=== PATIENT | female | born 1975 ===

== ENCOUNTER 2017-09-21 13:08 | Emergency (ER) | payer OTHER ==
[2017-09-21 13:30] VITALS: RESP 18
--- NOTE | 2017-09-21 13:39 | ED PDOC ---
HPI: Headache Time Seen by Provider: 09/21/17 13:40 Chief Complaint (Nursing): Headache History Per: Patient History/Exam Limitations: no limitations Onset/Duration Of Symptoms: Days Current Symptoms Are (Timing): Still Present Severity: Moderate Additional Complaint(s): 42-year-old female, presents to the emergency department with complaints of a headache. Patient states that two nights ago, she noted a gradually worsening posterior headache before she went to sleep, associated with mild nausea. The next day, her headache was much worse and associated with blurred vision in one eye. Patient states she was seen at [facility] and had a CTA for evaluation and found to have an abnormality in carotid. Patient had subsequent carotid doppler done with no abnormality found. She was discharged and not given any medications. Patient woke up today, with worsening right sided headache and face pain, associated with blurred vision in right eye. She denies any vomiting, numbness/weakness, slurred speech, neck pain, dizziness, or any other associated symptoms. No other complaints at this time. Past Medical History Reviewed: Historical Data, Nursing Documentation, Vital Signs Vital Signs: Last Vital Signs Temp 98.4 F 09/21/17 13:26 Pulse 59 L 09/21/17 13:26 Resp 18 09/21/17 13:26 BP 118/73 09/21/17 13:26 Pulse Ox 100 09/21/17 13:26 - Family History Family History: States: No Known Family Hx - Allergies Allergies/Adverse Reactions: Allergies Allergy/AdvReac Type Severity Reaction Status Date / Time No Known Allergies Allergy Verified 09/21/17 13:26 Review of Systems Constitutional: Negative for: Fever, Chills Eyes: Positive for: Vision Change Cardiovascular: Negative for: Chest Pain, Palpitations Respiratory: Negative for: Shortness of Breath Gastrointestinal: Negative for: Nausea, Vomiting Neurological: Positive for: Headache. Negative for: Weakness, Numbness, Dizziness Physical Exam - Reviewed Nursing Documentation Reviewed: Yes Vital Signs Reviewed: Yes - Physical Exam Appears: Positive for: Non-toxic, No Acute Distress Head Exam: Positive for: ATRAUMATIC, NORMOCEPHALIC Skin: Positive for: Normal Color, Warm, Dry. Negative for: Rash Eye Exam: Positive for: Normal appearance, EOMI, PERRL Neck: Positive for: Painless ROM Cardiovascular/Chest: Positive for: Regular Rate, Rhythm. Negative for: Murmur Respiratory: Positive for: Normal Breath Sounds. Negative for: Accessory Muscle Use Extremity: Positive for: Normal ROM. 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 Negative for: Motor/Sensory Deficits, Facial Droop - Laboratory Results Result Diagrams: 09/21/17 14:03 09/21/17 14:03 - ECG O2 Sat by Pulse Oximetry: 100 - Progress ED Course And Treament: IMPRESSION: No acute intracranial abnormality. Mild age advanced global parenchymal volume loss with frontal predominance. reglan 10 mg iv x 1 dose NS 1 liter wide open Patient states headache resolved in ED Medical Decision Making Medical Decision Making: Impression Headache Plan: * CT Head * bloodwork * Reglan, IVF * Reassess and Disposition Progress Scribe Attestation: Documented by John Brooke, acting as a scribe for RAJINDER Quinonez. Provider Scribe Attestation: All medical record entries made by the Scribe were at my direction and personally dictated by me. I have reviewed the chart and agree that the record accurately reflects my personal performance of the history, physical exam, medical decision making, and the department course for this patient. I have also personally directed, reviewed, and agree with the discharge instructions and disposition. Disposition - Clinical Impression Clinical Impression: Headache - Patient ED Disposition Is Patient to be Admitted: No - Disposition Referrals: Ras Nagy MD [Medical Doctor] - Disposition: Routine/Home Disposition Time: 16:06 Condition: FAIR Instructions: Headache, Adult, Migraine Headache (DC)
[2017-09-21 14:18] LABS: BASO # 0.1 K/uL (0.0-0.2); BASO % 1.2 % (0.0-2.0); EOS # 0.1 K/uL (0.0-0.7); EOS % 0.9 % (0.0-4.0); MEAN CELL VOLUME 69.3 fl (81.0-99.0); MEAN CORPUSCULAR HEMOGLOBIN 21.9 pg (27.0-31.0); MEAN CORPUSCULAR HGB CONC 31.6 g/dL (33.0-37.0); MEAN PLATELET VOLUME 8.7 fl (7.2-11.7); MONO # 0.4 K/uL (0.0-0.8); MONO % 7.1 % (0.0-10.0); NEUT # 3.4 K/uL (1.8-7.0); NEUT % 56.8 % (50.0-75.0); NRBC % 0.1 % (0.0-0.0); WHITE BLOOD COUNT 5.9 K/uL (4.8-10.8)
[2017-09-21 14:28] LABS: ALB/GLOB RATIO 1.4 (1.0-2.1); ALBUMIN 4.6 g/dL (3.5-5.0); ALT/SGPT 26 U/L (9-52); AST/SGOT 32 U/L (14-36); BLOOD UREA NITROGEN 11 mg/dl (7-17); CALCIUM 9.5 mg/dL (8.4-10.2); GFR AFRICAN-AMERICAN > 60; GFR NON-AFRICAN AMERICAN > 60
[2017-09-21] MEDS: Sodium Chloride 0.9% 1,000 ML IV STA (14:30)
--- NOTE | 2017-09-21 15:38 | CT ---
Date of service: 09/21/2017 PROCEDURE: CT HEAD WITHOUT CONTRAST. HISTORY: Headache COMPARISON: None available. TECHNIQUE: Axial computed tomography images were obtained through the head/brain without intravenous contrast. Radiation dose: Total exam DLP = 829.63 mGy-cm. This CT exam was performed using one or more of the following dose reduction techniques: Automated exposure control, adjustment of the mA and/or kV according to patient size, and/or use of iterative reconstruction technique. FINDINGS: HEMORRHAGE: No intracranial hemorrhage. BRAIN: White-white matter differentiation is preserved. There is no mass, mass effect or abnormal extra-axial fluid collection. There is no territorial infarction. The midline sagittal structures are normal. VENTRICLES: There is mild age advanced global parenchymal volume loss with frontal predominance. CALVARIUM: The skull base and calvarium are normal. PARANASAL SINUSES: Predominantly clear. MASTOID AIR CELLS: Predominantly clear. OTHER FINDINGS: None. IMPRESSION: No acute intracranial abnormality. Mild age advanced global parenchymal volume loss with frontal predominance.
[2017-09-21 16:59] VITALS: BP 124/76; PULSE 70; TEMP 98.2
[2017-09-22 16:11] VITALS: O2SAT 100
== END 2017-09-21 16:15 | disposition home or self-care (01) ==
LOC: H.ER 13:08
DX: R51 Headache (principal)
CPT/HCPCS: 70450; 80053; 81025; 85025; 96374; 99284; J2765; J7030